=== PATIENT | female | born 1990 | race Caucasian/White ===

== ENCOUNTER 2019-04-16 13:44 | Inpatient (IN) | payer OTHER ==
[~2019-04-16] VITALS: Ht 154.9 cm; Wt 84.2 kg
[~2019-04-16 13:44] MED LIST: PNV1TABL50
[2019-04-16] MEDS ORDERED: LACTATED RINGER'S 1,000 ML IV PRN (14:37)
[2019-04-16 14:42] VITALS: BP 124/60; PULSE 70; RESP 18; Ht 154.9 cm; Wt 84.2 kg
[2019-04-16] MEDS ORDERED: BUTORPHANOL 2 MG INJ IV PRN ×2 (15:00)
[2019-04-16] MEDS ORDERED: CARBOPROST 250 MCG INJ IM PRN (15:00)
[2019-04-16] MEDS ORDERED: LIDOCAINE 1% (MPF) 30 ML INJ INJ PRN (15:00)
[2019-04-16] MEDS ORDERED: MISOPROSTOL 200 MCG TAB PR PRN (15:00)
[2019-04-16] MEDS ORDERED: OXYTOCIN 30 UNITS/LR 500 ML IV PRN (15:00)
[2019-04-16] MEDS ORDERED: OXYTOCIN 30 UNITS/LR 500 ML IV SCH ×2 (15:00)
[2019-04-16] MEDS ORDERED: METHYLERGONOVINE 0.2 MG INJ IM PRN (15:00)
[2019-04-16] MEDS ORDERED: IBUPROFEN 600 MG TAB PO PRN (15:00)
[2019-04-16] MEDS: LACTATED RINGER'S 1,000 ML IV SCH ×3 (15:20→23:20)
[2019-04-16] MEDS: MISOPROSTOL 50 MCG CAPSULE PO SCH ×2 (16:53→21:34)
[2019-04-17] MEDS ORDERED: TERBUTALINE 1 MG/ML INJ SC ONE
[2019-04-17] MEDS ORDERED: TERBUTALINE 1 ML ONE (00:10)
[2019-04-17] MEDS: MISOPROSTOL 50 MCG CAPSULE PO SCH ×2 (05:00→05:59)
--- NOTE | 2019-04-17 06:31 | HP ---
Date/Time of Note Date/Time of Note DATE: 04/17/19 TIME: 06:23 OB - History Hx of Present Free Text/Dictation April 17, 2019 Late entry note for admission for April 16, 2019 : 3 Para: 1 Care: Good Care Other Concerns: 28-year-old 3 para 1 with IUP at 37 weeks and 4 days was sent from the office by primary OB Dr. Allison for induction due to concern for cholestasis of . Patient denies any leaking of fluid, vaginal bleeding or decreased movement. Her cervix was unfavorable. GBS was negative. There was no other complication during course except cholestasis of . Past Family/Social History * Past Medical, Surgical, Family and Obstetric Histories reviewed from chart. Blood Type: A+ Rubella: unknown RPR/VDRL: Negative GBS Status: Negative HBsAG: Negative OB Admission Exam Vital Signs Vital Signs Vital Signs Date Temp Pulse Resp B/P (MAP) Pulse Ox O2 O2 Flow FiO2 Time Delivery Rate 04/16/19 98.2 70 18 124/60 Room Air 14:42 (81) Physical Exam HEENT: WNL Lungs: Clear Abdomen: WNL Extremities: Normal Cervical Dilatation: 1cm Effacement: 50% Station: -3 Membranes: Intact Heart Rate: 130's Accelerations: Accelerations Present Decelerations: No Decelerations Varibility: Moderate Contractions on Admission: >10 Minutes Apart Intensity: Mild Last 72 hours Lab Results CBC & BMP 04/16/19 14:30 Liver Function Test 04/16/19 14:30 Alanine Aminotransferase (ALT/SGPT) 71 H Albumin 3.5 Alkaline Phosphatase 323 H Aspartate Amino Transf (AST/SGOT) 65 H Direct Bilirubin 0.00 Total Protein 7.4 OB Assessment/Plan Other Assessment: IUP at 37 weeks and 3 days Cholestasis of GBS negative Cervix unfavourable NST reassuring Start Cytotec per protocol for induction Anticipate watch labor curve Epidural if desires in active labor JARET NOLAN MD April 17, 2019 06:31
--- NOTE | 2019-04-17 06:34 | LDN ---
Date/Time of Note Date/Time of Note DATE: 04/17/19 TIME: 06:31 Delivery Summary 04/17/2019 Weeks of Gestation 37 weeks adn 4 days Placenta Delivered: Spontaneously Meconium: none Episiotomy: No Indication for episiotomy N/A Perineal laceration: 0 Laceration repair: Acute bilateral labial laceration and periurethral laceration repaired after local infiltration with lidocaine with 3-0 chromic. Hemostasis was complete. Urethra was catheterized and noted to be intact. Urine was clean. 50 cc clear urine after catheterization obtained. Anesthesia type: None Estimated blood loss: 300 Sponge & Needle done & correct: Yes All needle counts correct: Yes Any foreign bodies felt in the: No Infant Delivery Information Sex Infant Sex: female Apgars 1 Minute: 8 5 Minute: 9 Suctioning Nose & mouth suctioned at sara: Yes Delee suction performed: Yes Umbilical Cord Umbilical cord with: 3 Vessels Cord presentations: nuchal cord Nuchal cord present X: 2 Cord Blood was obtained: Yes Mother & Baby Disposition Disposition Nuchal cord x2 was noted at the time of delivery and released. I was called to attend the delivery since the patient had significant urge to push. Reported that had recurrent variable deceleration. Attended to the patient bedside. Primary attending signed out to OB hospitalist for delivery. Noted the patient has significant urge to push complete complete +3. Started pushing. Baby was delivered in vertex presentation. Tight nuchal cord x2 noted that released. After delivery of the baby cord was clamped and cut. Baby was immediately handed and transferred to the warmer. Placenta delivered complete within 20 minutes after delivery of the baby. Perineal evaluation noted to have first-degree bilateral labial laceration and periurethral laceration and repaired after local infiltration with lidocaine 1% of about 6 cc. Using 3-0 chromic. Hemostasis was complete. Fundus was firm at the end of the delivery. EBL 300 cc. JARET NOLAN MD April 17, 2019 06:34
[2019-04-17] MEDS ORDERED: OXYTOCIN 30 UNITS/LR 500 ML IV SCH (06:39)
[2019-04-17] MEDS ORDERED: NACL 0.9% 3 ML SYG IV SCH (07:00)
[2019-04-17] MEDS ORDERED: MISOPROSTOL 200 MCG TAB PR PRN (07:00)
[2019-04-17] MEDS ORDERED: OXYTOCIN 30 UNITS/LR 500 ML IV PRN (07:00)
[2019-04-17] MEDS ORDERED: ONDANSETRON 4 MG INJ IV PRN (07:00)
[2019-04-17] MEDS ORDERED: HYDROCODONE/APAP (5/325) TAB PO PRN (07:00)
[2019-04-17] MEDS ORDERED: CARBOPROST 250 MCG INJ IM PRN (07:00)
[2019-04-17] MEDS ORDERED: DIPHENHYDRAMINE 25 MG CAP PO PRN (07:00)
[2019-04-17] MEDS ORDERED: ZOLPIDEM 5 MG TAB PO PRN (07:00)
[2019-04-17] MEDS ORDERED: LANOLIN HPA 1 PKT TOP PRN (07:00)
[2019-04-17 08:15] VITALS: BP 119/64; PULSE 59; RESP 18
[2019-04-17] MEDS: IBUPROFEN 600 MG TAB PO SCH ×3 (08:15→18:12)
[2019-04-17 09:15] VITALS: BP 121/77; PULSE 62; RESP 19
[2019-04-17] MEDS: WITCH HAZEL/GLYCERIN PAD PR PRN (10:30)
[2019-04-17] MEDS: SENNA/DOCUSATE NA (8.6MG/50MG) TAB PO SCH ×2 (10:30→21:18)
[2019-04-17 12:00] VITALS: BP 121/68; PULSE 57; RESP 19
[2019-04-17 16:10] VITALS: BP 113/55; PULSE 59; RESP 18
[2019-04-17 20:00] VITALS: BP 105/61; PULSE 67; RESP 18
[2019-04-18] MEDS: IBUPROFEN 600 MG TAB PO SCH ×5 (00:38→23:46)
[2019-04-18 04:30] VITALS: BP 114/61; PULSE 62; RESP 18
[2019-04-18 08:00] VITALS: BP 102/56; PULSE 63; RESP 20
[2019-04-18] MEDS: SENNA/DOCUSATE NA (8.6MG/50MG) TAB PO SCH ×2 (10:14→20:58)
[2019-04-18 16:54] VITALS: BP 126/73; PULSE 74; RESP 18
[2019-04-18 19:55] VITALS: BP 111/63; PULSE 68; RESP 17
[2019-04-18] MEDS: WITCH HAZEL/GLYCERIN PAD PR PRN (21:00)
[2019-04-19 04:00] VITALS: BP 109/65; PULSE 63; RESP 18
[2019-04-19] MEDS: IBUPROFEN 600 MG TAB PO SCH ×2 (05:47→11:45)
[2019-04-19 08:00] VITALS: BP 110/67; PULSE 68; RESP 18
--- NOTE | 2019-04-19 08:59 | DS ---
Date/Time of Note Date/Time of Note DATE: 04/19/19 TIME: 08:58 Discharge Summary Admission/Discharge Info Admit Date/Time April 16, 2019 at 13:44 Discharge Date/Time Discharge Diagnosis term Patient Condition: Stable Hospital Course unremarkable Home Meds Reported Medications Pnv With Ca,No.71/Iron/Fa (PRENAPLUS TABLET) 1 Each Tablet 03/26/13 Primary Care Provider Not On Staff Doctor JASMIN TUCKER MD Apr 19, 2019 08:59
[2019-04-19] MEDS ORDERED: VARICELLA VACCINE LIVE/PF 1,350 UNIT/0.5 ML ML SC* ONE (09:00)
[2019-04-19] MEDS ORDERED: DIPHTH/TET/ACEL PERTUSS (ADULT) 0.5 ML VIAL IM* ONE (09:00)
[2019-04-19] MEDS ORDERED: MEASLES,MUMPS,RUBELLA VACCINE INJ SC* ONE (09:00)
[2019-04-19] MEDS: SENNA/DOCUSATE NA (8.6MG/50MG) TAB PO SCH (09:24)
--- NOTE | 2019-04-20 14:29 | DELSUM ---
Delivery Summary A-C Datetime Report Generated by CPN: 04/20/2019 14:28 DELIVERY PERSONNEL Medical Legal Investigator: Marinelli, Korin MATERNAL INFORMATION Delivery Anesthesia: Local Medications in Delivery: 30 UNITS PITOCIN Delivery QBL (ml): 300 Placenta Cultured: Yes Maternal Complications: None LABOR SUMMARY EDC: 05/04/2019 00:00 No. Babies in Womb: 1 Attempted: No Labor Anesthesia: None LABOR INFORMATION Reason for Induction: Other Reason for Induction- Other: CHOLESTASIS Complete Dilatation: 04/17/2019 05:24 Cervical Ripening Agents: Cytotec @ Oxytocin: N/A Group B Beta Strep: Negative Antibiotics # of Doses: 0 Steroids Given: None Reason Steroids Not Administered: Not Applicable MEMBRANES Membranes Rupture Method: Spontaneous Rupture of Membranes: 04/17/2019 05:03 Length of Rupture (hr): 0.50 Amniotic Fluid Color: Clear Amniotic Fluid Amount: Moderate Amniotic Fluid Odor: None STAGES OF LABOR Stage 2 hr: 0 Stage 2 min: 9 Stage 3 hr: 0 Stage 3 min: 10 VAGINAL DELIVERY Laceration Extension: First Degree Laceration Type: Perineal; Vaginal; Periurethral Laceration Repair: Yes Initial Vag Sponge Count: 10 Final Vag Sponge Count: 10 Initial Vag Sharps Count: 3 Final Vag Sharps Count: 3 Sponge Count Correct: Yes; Vaginal Sweep Performed Sharps Count Correct: Yes BABY A INFORMATION Delivery Date/Time: 04/17/2019 05:33 Method of Delivery: Vaginal Born in Route : No : N/A Forceps: N/A Vacuum Extraction: N/A Shoulder Dystocia : N/A SHOULDER DYSTOCIA BABY A Delivery Date/Time: 04/17/2019 05:33 PRESENTATION/POSITION BABY A Presentation: Cephalic Cephalic Presentation: Vertex Breech Presentation: N/A PLACENTA INFORMATION BABY A Placenta Delivery Time : 04/17/2019 05:43 Placenta Method of Delivery: Expressed Placenta Status: Delivered SCORES BABY A Heart Rate 1 min: >100 bpm Resp Effort 1 min: Good Cry Reflex Irritability 1 min: Cough/Sneeze/Pulls Away Muscle Tone 1 min: Active Motion Color 1 min: Blue/Pale Resuscitation Effort 1 min: Tactile Stimulation SCORE 1 MIN: 8 Heart Rate 5 min: >100 bpm Resp Effort 5 min: Good Cry Reflex Irritability 5 min: Cough/Sneeze/Pulls Away Muscle Tone 5 min: Active Motion Color 5 min: Body [place], Extremit Blue Resuscitation Effort 5 min: Tactile Stimulation SCORE 5 MIN: 9 INFANT INFORMATION BABY A Gestational Age at Delivery: 37.4 Gestational Status: Early Term- 37- 38.6 Weeks Outcome : Liveborn Infant Condition : Stable Sex: Female IDENTIFICATION/MEDS BABY A ID Band Number: [id number] ID Band Location: Right Leg; Left Arm Sensor Applied: Yes Sensor Number: [id number] Sensor Location : Cord Clamp Vitamin K Given : Not Given Erythromycin Given: Not Given WEIGHT/LENGTH BABY A Infant Birthweight (gm): 2795 Weight (lb): 6 Weight (oz): 3 Length (in): 18.50 Infant Length (cm): 46.99 CORD INFORMATION BABY A No. Cord Vessels: 3 Nuchal Cord : Around Neck x2, Tight Cord pH Baby Arterial: 7.28 Cord pH Baby Venous: 7.37 Cord Blood Taken: Yes Suction: Mouth; Nose ASSESSMENT BABY A Complications: Multiple Variable Decels Physical Findings at Delivery: Within Normal Limits Infant Respirations: Appears Normal Sign Language Translator/ALS Called : No Infant Care By: MARIYA Transferred To: Remains with Mother
== END 2019-04-19 14:28 | disposition home or self-care (01) | DRG 805 ==
LOC: L-D 13:44 → PP1 04-17 08:47
PROVIDERS: ADMIT Obstetrics & Gynecology; ATTEND Obstetrics & Gynecology
PROC: 10E0XZZ Delivery of Products of Conception, External Approach (ICD-10-PCS; principal; 2019-04-17)
PROC: 0HQ9XZZ Repair Perineum Skin, External Approach (ICD-10-PCS; 2019-04-17)
PROC: 0UQMXZZ Repair Vulva, External Approach (ICD-10-PCS; 2019-04-17)
DX: O26.62 Liver and biliary tract disorders in childbirth (principal); K83.1 Obstruction of bile duct; Z37.0 Single live birth; O70.0 First degree perineal laceration during delivery; O71.82 Other specified trauma to perineum and vulva; O69.81X0 Labor and delivery complicated by cord around neck, without compression, not applicable or unspecified; Z3A.37 37 weeks gestation of pregnancy; Z23 Encounter for immunization
CPT/HCPCS: 36415; 36600; 76815; 80053; 82803; 85025; 85610; 85730; 86592; 86850; 86900; 86901; 88307; 90716; 99464; J2590; J3105; J7120